=== PATIENT | female | born 1950 | race Two or more races ===

== ENCOUNTER 2016-07-26 11:47 | Emergency (ER) | payer OTHER ==
--- NOTE | 2016-07-26 12:39 | CPEKG ---
Heart Rate: 76 RR Interval: 789 P-R Interval: 160 QRSD Interval: 82 QT Interval: 368 QTC Interval: 414 P Stuart: 64 QRS Stuart: 22 T Wave Stuart: -19 EKG Severity - BORDERLINE ECG - EKG Impression: SINUS RHYTHM EKG Impression: BORDERLINE T ABNORMALITIES, DIFFUSE LEADS Electronically Signed By: Ann Marie Grimaldo 27-Jul-2016 16:31:20
--- NOTE | 2016-07-26 12:39 | EDPHY ---
H & P Stated Complaint: htn/beltran for 5 days Time Seen by Provider: 07/26/16 12:38 HPI/ROS: CHIEF COMPLAINT: Headache, hypertension. HISTORY OF PRESENT ILLNESS: The patient is a 66-year-old female who presents with 4 days of headache and hypertension. The pain is located in the back of her head and her left eye. She denies blurry or double vision. No head trauma or recent falls. She admits associated chest pain she describes as "coming and going for long time" but cannot describe exactly when this began. She moved from [place] in March. She reports that she had her medications prescribed by [facility] when she arrived here. She tells me that her physician at [facility] has given her the same medications that she took in [place] but she is concerned that they are not control her blood pressure well. She has been compliant with her medications. No recent sickness, fever, chills, chest pain, shortness of breath, palpitations, vomiting, diarrhea, urinary complaints , headache, lightheadedness. History is obtained via [place] decorator lighting fixtures at bedside. Patient does report that she has been less active [place] than she typically would have been in [place]. REVIEW OF SYSTEMS: Aside from elements discussed in the HPI, a comprehensive 10-point review of systems was reviewed and is negative. PAST MEDICAL HISTORY: Hypertension, diabetes. SOCIAL HISTORY: Recently moved from [place]. VITAL SIGNS: Reviewed by me. 231/137. GENERAL: Well-developed, well-nourished, resting comfortably in no respiratory distress. Pleasant, conversant, looks well. HEENT: Atraumatic. Eyes: No icterus, no injection. SHILOH, EOMI. Mouth: moist mucous membranes. No erythema or lesions. Neck: supple with no adenopathy. No meningismus. LUNGS: Clear to auscultation bilaterally, no wheezes, rhonchi or rales. CARDIAC: Regular rate and rhythm, no rubs, murmurs or gallops. ABDOMEN: Soft, nontender, nondistended, bowel sounds normal. BACK: No CVA tenderness. EXTREMITIES: No trauma. No edema. Range of motion is normal throughout. NEURO: Alert and oriented x3, motor strength 5/5 throughout. Sensation intact to light touch throughout. SKIN: Warm and dry, no rash. PSYCHIATRIC: Normal mentation, no agitation. Portions of this note were transcribed by a behavioral medical director. I personally performed a history, physical exam, medical decision making, and confirmed accuracy of information the transcribed note. Source: Patient Exam Limitations: Language barrier - Personal History Current Tetanus/Diphtheria Vaccine: Yes - Medical/Surgical History Hx Asthma: No Hx Chronic Respiratory Disease: No Hx Diabetes: Yes Hx Cardiac Disease: No Hx Renal Disease: No Hx Cirrhosis: No Hx Alcoholism: No Hx HIV/AIDS: No Hx Splenectomy or Spleen Trauma: No Other PMH: htn/diabetes - Social History Smoking Status: Never smoked Constitutional: Initial Vital Signs Temperature (C) 36.8 C 07/26/16 12:02 Heart Rate 83 07/26/16 12:02 Respiratory Rate 20 07/26/16 12:02 Blood Pressure 231/137 H 07/26/16 12:02 O2 Sat (%) 95 07/26/16 12:02 O2 Delivery Mode Room Air Allergies/Adverse Reactions: No Known Allergies Allergy (Unverified 07/26/16 11:59) Home Medications: Medication Instructions Recorded Bisoprolol Fumarate 07/26/16 Glimepiride 07/26/16 Losartan Potassium 07/26/16 Metformin HCl 07/26/16 Medical Decision Making - Diagnostics EKG Interpretation: 12-LEAD EKG: Please see the full report in [facility]. My interpretation: Sinus rhythm, nonspecific T-wave changes. Imaging: Study: CT of the head. Indication: Headache. Results: Negative. The study was read by the radiologist, Dr. Zavala. I viewed the images myself on the PACS system. X-ray chest was obtained. I viewed the images myself on the PACS system. My interpretation of the images is: no acute cardiopulmonary disease. The radiologist interpretation is: Normal. I discussed the x-ray findings with the patient. ED Course/Re-evaluation: An IV was established and labs ordered. Chest x-ray, head CT, EKG obtained. 1325: Head CT reported to me negative by Dr. Zavala. Patient's labs and head CT, EKG, all negative. I see no signs of end-organ abnormalities. 1423: Reassessed patient. Discussed results of x-ray and CT. Her blood pressure at this time is 189/81. Patient received clonidine 0.1 mg. Will increase patient's losartan to 75 mg q.day. [facility] to reassess blood pressure. Differential Diagnosis: Differential diagnoses for the patient's symptom complex was considered including but not limited to hypertensive urgency, hypertensive emergency, medication noncompliance, essential hypertension, hypertensive headache, intracranial hemorrhage. - Data Points Laboratory Results: Laboratory Results 07/26/16 12:57 07/26/16 12:57 07/26/16 07/26/16 12:57 12:57 WBC 7.35 10^3/uL 10^3/uL (3.80-9.50) RBC 4.61 10^6/uL 10^6/uL (4.18-5.33) Hgb 14.9 g/dL g/dL (12.6-16.3) Hct 42.8 % % (38.0-47.0) MCV 92.8 fL fL (81.5-99.8) MCH 32.3 pg pg (27.9-34.1) MCHC 34.8 g/dL g/dL (32.4-36.7) RDW 13.0 % % (11.5-15.2) Plt Count 261 10^3/uL 10^3/uL (150-400) MPV 10.8 fL fL (8.7-11.7) Neut % (Auto) 43.3 % % (39.3-74.2) Lymph % (Auto) 44.1 % % (15.0-45.0) Mobile % (Auto) 8.2 % % (4.5-13.0) Eos % (Auto) 3.7 % % (0.6-7.6) Baso % (Auto) 0.4 % % (0.3-1.7) Nucleat RBC Rel Count 0.0 % % (0.0-0.2) Absolute Neuts (auto) 3.19 10^3/uL 10^3/uL (1.70-6.50) Absolute Lymphs (auto) 3.24 10^3/uL H 10^3/uL (1.00-3.00) Absolute Monos (auto) 0.60 10^3/uL 10^3/uL (0.30-0.80) Absolute Eos (auto) 0.27 10^3/uL 10^3/uL (0.03-0.40) Absolute Basos (auto) 0.03 10^3/uL 10^3/uL (0.02-0.10) Absolute Nucleated RBC 0.00 10^3/uL 10^3/uL (0-0.01) Immature Gran % 0.3 % % (0.0-1.1) Immature Gran # 0.02 10^3/uL 10^3/uL (0.00-0.10) Sodium 138 mEq/L mEq/L (134-144) Potassium 4.5 mEq/L mEq/L (3.5-5.2) Chloride 99 mEq/L mEq/L (97-110) Carbon Dioxide 24 mEq/l mEq/l (22-31) Anion Gap 15 mEq/L mEq/L (8-16) BUN 15 mg/dL mg/dL (7-23) Creatinine 0.6 mg/dL mg/dL (0.6-1.0) Estimated GFR > 60 Glucose 351 mg/dL H mg/dL (70-100) Calcium 10.2 mg/dL mg/dL (8.5-10.4) Troponin I < 0.012 ng/mL ng/mL (0-0.034) Departure - Departure Disposition: Home, Routine, Self-Care Clinical Impression: Headache Qualifiers: Headache type: unspecified Headache chronicity pattern: unspecified pattern Intractability: not intractable Qualified Code(s): R51 - Headache Hypertension Qualifiers: Hypertension type: unspecified secondary hypertension Qualified Code(s): I15.9 - Secondary hypertension, unspecified Condition: Good Instructions: Acute Headache (ED), Hypertension (ED) Additional Instructions: Take 600mg Ibuprofen every 6-8 hours as needed for headache. This can be alternated with 650mg Tylenol every 4-6 hours if pain is severe. Begin taking Losartan 1 and half tablets every day. (75 mg daily) please discuss this change with your doctor at [facility]. Follow up with [facility] this week for reevaluation. Return to the emergency department if you experience any serious worsening of condition. Referrals: [facility],. [Clinic] - As per Instructions Print Language: [place] Report Scribed for: Ann Marie Grimaldo Report Scribed by: Dionicio Gordillo Date of Report: 07/26/16 Time of Report: 12:41
[2016-07-26 13:12] LABS: % IMMATURE GRANULYOCYTES 0.3 % (0.0-1.1); ABSOLUTE IMMATURE GRANULOCYTES 0.02 10^3/uL (0.00-0.10); ADD DIFF? NO; ADD MORPH? NO; ADD SCAN? NO; ATYPICAL LYMPHOCYTE FLAG 20 (0-99); FRAGMENT RBC FLAG 0 (0-99); HEMATOCRIT 42.8 % (38.0-47.0); HEMOGLOBIN 14.9 g/dL (12.6-16.3); LEFT SHIFT FLG 0 (0-99); LIPEMIA HEMOLYSIS FLAG 90 (0-99); MEAN CELL HEMOGLOBIN 32.3 pg (27.9-34.1); MEAN CELL HEMOGLOBIN CONCENTR. 34.8 g/dL (32.4-36.7); MEAN CELL VOLUME 92.8 fL (81.5-99.8); MEAN PLATELET VOLUME 10.8 fL (8.7-11.7); PLATELET CLUMPS FLAG 10 (0-99); PLATELET COUNT 261 10^3/uL (150-400); RED BLOOD CELL COUNT 4.61 10^6/uL (4.18-5.33)
[2016-07-26 13:26] LABS: ANION GAP 15 mEq/L (8-16); CALCIUM 10.2 mg/dL (8.5-10.4); CARBON DIOXIDE 24 mEq/l (22-31); CHLORIDE 99 mEq/L (97-110); CREATININE 0.6 mg/dL (0.6-1.0); GLOMERULAR FILTRATION RATE > 60; GLUCOSE 351 mg/dL (70-100); POTASSIUM 4.5 mEq/L (3.5-5.2); SODIUM 138 mEq/L (134-144)
[2016-07-26 13:38] LABS: TROPONIN I < 0.012 ng/mL (0-0.034)
[2016-07-26 15:13] VITALS: BP 154/90; PULSE 80; RESP 14; TEMP 98.4; O2SAT 94
== END 2016-07-26 15:12 | disposition home or self-care (01) ==
DX: R51 Headache (principal); I15.9 Secondary hypertension, unspecified; E11.9 Type 2 diabetes mellitus without complications